=== PATIENT | female | born 1965 | race Caucasian/White ===

== ENCOUNTER → 2023-08-19 | Emergency (ER) | payer BC ==
[~2023-08-19] VITALS: Ht 165.1 cm; Wt 70.3 kg
== END | disposition home or self-care (01) ==
LOC: ER 17:42
DX: S99.822A Other specified injuries of left foot, initial encounter (principal); X50.9XXA Other and unspecified overexertion or strenuous movements or postures, initial encounter; Y93.89 Activity, other specified; Y92.488 Other paved roadways as the place of occurrence of the external cause; Z88.0 Allergy status to penicillin

== ENCOUNTER 2023-08-20 11:22 | Emergency (ER) | payer BC ==
[~2023-08-20] VITALS: Ht 165.1 cm; Wt 70.3 kg
== END 2023-08-20 15:20 | disposition home or self-care (01) ==
LOC: ER 11:22
DX: S99.822A Other specified injuries of left foot, initial encounter (principal); X58.XXXA Exposure to other specified factors, initial encounter; Y93.89 Activity, other specified; Y92.89 Other specified places as the place of occurrence of the external cause; Y99.8 Other external cause status; Z88.0 Allergy status to penicillin